=== PATIENT | male | born 1935 | race Caucasian/White ===

== ENCOUNTER 2016-08-15 21:27 | Inpatient (IN) | payer MEDICARE, BC ==
[~2016-08-15] VITALS: Ht 185.4 cm; Wt 89.0 kg
--- NOTE | ~2016-08-15 | ECH ---
Transthoracic Echocardiography Report (TTE) Demographics Patient Name TOOTIE DRAPER Date of Study 08/16/2016 Patient Number [id number] Visit Number [id number] Date of 1935 Room Number 303 Accession Number [id number] Gender Male Age 80 year(s) Referring Melissa PISANO Communication Clerk Stormy Connolly [facility] Physician Mario NOVAK Physician Interpreting Jaclyn Pearson Bus Operator Physician Supervising Ordering Physician Melissa Martin MD/P Nurse Stress Bunker Worker Conclusions Summary Technically fair exam. The estimated left ventricular ejection fraction is 50-55%. Mild to moderate left ventricular hypertrophy. The left atrium is mildly dilated by LA volume index measurement. Mild-moderate mitral regurgitation by color Doppler. The mitral regurgitation jet is posteriorly directed . There is mild aortic regurgitation by color Doppler. Mild tricuspid regurgitation by color Doppler. There is mild pulmonary hypertension. The pulmonary pressure (RVSP) is 37 mmHg. Procedure Type of Study TTE procedure:Echo Complete SF. Procedure Date Date: 08/16/2016 Start: 08:31 AM Technical Quality: Fair due to poor acoustical window. Indications:Elevated Troponin, Chest pain, Ischemic Cardiomyopathy and Coronary artery disease. Appropriate Use Criteria: 9 Height: 73 inches Weight: 194 pounds BSA: 2.12 m Rhythm: NSR HR: 72 bpm BP: 152/84 mmHg Allergies - Penicillin. M-Mode/2D Measurements LV Diastolic Dimension: 5.3 cm LV Systolic Dimension: 5.1 cm LV Septum Diastolic: 1.8 cm LV Septum Systolic: 1 cm LV PW Diastolic: 1.2 cm AO Root Dimension: 3.46 cm LA Dimension: 5.24 cm RV Diastolic Dimension: 3.38 cm LA volume: 87 ml LA volume index: 41 ml/m LVOT: 2.43 cm RV Base: 3.32 cm Doppler Measurements AV Peak Velocity: 0.77 m/s MV Peak E-Wave: 1.92 m/s AV Peak Gradient: 2.37 mmHg MV Peak A-Wave: 0.67 m/s LVOT Peak Velocity: 0.7 m/s MV E/A Ratio: 2.87 MV P1/2t: 48 msec TR Velocity:2.84 m/s TR Gradient:32.26 mmHg MV Deceleration Time: 164 msec Estimated RAP:5 mmHg MV Area (PHT): 4.58 cm Estimated RVSP: 37 mmHg PV Peak Velocity: 0.9 m/s PV Peak Gradient: 3.24 mmHg Estimated PASP: 37.26 mmHg RA Area: 15 cm Findings Left Ventricle The left ventricle is normal in size . Mild to moderate left ventricular hypertrophy. Diastolic assessment reveals Grade II pseudonormal diastolic function . Right Ventricle Device lead noted in the right ventricle. Right ventricle not well visualized. Left Atrium The left atrium is mildly dilated by LA volume index measurement. Right Atrium Normal right atrial size. Device lead seen in the right atrium. Mitral Valve Mild thickening of the mitral valve leaflets. Mild-moderate mitral regurgitation by color Doppler. The mitral regurgitation jet is posteriorly directed . Aortic Valve Normal aortic valve structure and function. There is mild aortic regurgitation by color Doppler. Tricuspid Valve Normal tricuspid valve structure and function. Mild tricuspid regurgitation by color Doppler. There is mild pulmonary hypertension. The pulmonary pressure (RVSP) is 37 mmHg. Pulmonic Valve Normal pulmonic valve structure and function. Pericardial Effusion No evidence of pericardial effusion. Miscellaneous Visualized portions of the aortic root and ascending aorta appear normal in size. Pleural Effusion No evidence of pleural effusion. Contractility Score LV regional wall motion:(0-Non visualized 1-Normal 2-Hypokinesis 3-Akinesis 4-Dyskinesis 5-Aneurysm) Signature
--- NOTE | ~2016-08-15 | CATH ---
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 100% occluded SVG to Left Circumflex Diagnostic Recommendations Medical management Culprit appeared to be the SVG to the left circumflex as patient appeared to have posterior EKG changes. Pt was chest pain free and hemodynamically stable and the SVG was 100% occluded proximally and is a poor interventional target, so we will treat medically. Procedure Description The patient was emergently brought to the diagnostic cardiac catheterization laboratory in the non- fasting, non-sedated state. Informed consent was obtained in the verbal form only after the risks and benefits were explained. The patient had no further questions and agreed to proceed. The planned puncture-incision site(s) were shaved and prepped with ChloraPrep and draped in the usual sterile manner. Conscious sedation, supplemental oxygen, and pain control medications were delivered by a registered nurse under physician guidance. Surface ECG rhythm, blood pressure measurement, and pulse oximetry were monitored throughout the procedure. Arterial access. The right femoral access site was infiltrated with lidocaine. The right femoral vessel was entered with the Seldinger technique. A 6F sheath was advanced into the vessel and used for catheter placement. Selective right coronary angiography. A 6F JR4 catheter was advanced into the right coronary vessel ostium under fluoroscopic guidance. Contrast was injected by hand. Images were obtained in multiple projections. Selective SVG angiography. A JR4 catheter was advanced into the graft proximal anastomosis under fluoroscopic guidance. Contrast was injected by hand. Images were obtained in multiple projections. Selective left coronary angiography. A 6F JL4 catheter was advanced into the left coronary vessel ostium under Fluoroscopic guidance. Contrast was injected by hand. Images were obtained in multiple projections. Selective AMBROCIO graft angiography. A IM catheter was advanced into the left internal mammary graft ostium under fluoroscopic guidance. Contrast was injected by hand. Images were obtained in multiple projections. Left heart catheterization. A 6F Pigtail catheter was advanced across the aortic valve to the left ventricle under fluoroscopic guidance. Resting hemodynamics were obtained. Arterial artery hemostasis was achieved using manual compression. The patient was transferred to the ICU via cart accompanied by a terrazzo laborer nurse. The patient left the laboratory in stable condition. Diagnostic Cath Status: Emergency Procedure Procedure Type Diagnostic procedure:Angiography:, Coronary Angios w/LHC & Grafts Indications: Acute MD. The procedure was explained in detail to the patient. Risks, complications and alternative treatments were reviewed. Written consent was obtained. Medications Reviewed with Patient prior to Procedure. Complications: No Complication. Angiographic Findings Dominance: Right Cardiac Arteries and Lesion Findings LMCA: Normal (0% Stenosis). LAD: Abnormal. Lesion on Prox LAD: 100% stenosis . Comments:CHIEF DIGITAL MEDIA OFFICER LCx: Abnormal. Lesion on Prox CX: 100% stenosis . Comments:CHIEF DIGITAL MEDIA OFFICER RCA: Abnormal. Lesion on Prox RCA: 30% stenosis .The lesion showed severe tortuosity. Lesion on Mid RCA: 60% stenosis .The lesion showed severe tortuosity. Ramus: Abnormal. Lesion on Ramus: 10% stenosis . Graft Lesions Lesion on Aorta Left to Mid CX: Proximal anastomosis.100% stenosis .Culprit lesion. Cardiac Grafts - There is a Vein graft that originates at the Aorta Left and attaches to the Mid CX. - There is a AMBROCIO graft that originates at the AMBROCIO and attaches to the Mid LAD.The graft from Mid LAD jumps to 1st Diag. Coronary Tree Procedure Data Procedure Date Date: 08/15/2016Start: 10:16 PMEnd: 10:59 PM Entry Locations - Percutaneous access was performed through the Right Femoral artery (Primary location). A 6 Fr sheath was inserted. Hemostasis was successfully obtained using Manual Compression. Procedure Medications Order and Administration + + +---------+-------+ !Time !Medication !Dosage !Route ! + + +---------+-------+ !08/15/2016 10:17 PM !Oxygen !2 l/min !NC ! + + +---------+-------+ !08/15/2016 10:19 PM !Fentanyl !25 mcg !I.V. ! + + +---------+-------+ !08/15/2016 10:19 PM !Versed !1 mg !I.V. ! + + +---------+-------+ !08/15/2016 10:29 PM !Fentanyl !25 mcg !I.V. ! + + +---------+-------+ !08/15/2016 10:29 PM !Versed !1 mg !I.V. ! + + +---------+-------+ !08/15/2016 10:33 PM !Oxygen !6 l/min !NC ! + + +---------+-------+ !08/15/2016 10:54 PM !Sodium Chloride !10 ml !I.V. ! + + +---------+-------+ Devices Used - ACATH 6FR MULTIPACK CATHETERSwas used for:Right coronary angiography. - ACATH 6FR MULTIPACK CATHETERSwas used for:SVG. - ACATH 6FR MULTIPACK CATHETERSwas used for:Left coronary angiography. - ACATH 6F IM CATHETER 100CMwas used for:AMBROCIO. - ACATH 6FR MULTIPACK CATHETERSwas used for:LV Pressures. Contrast Material - Isovue 34160 ml Fluoroscopy Time: Diagnostic: 5:18 minutes. Total: 5:18 minutes. Fluoroscopy Dose: Diagnostic: 740 mGy. Total: 740 mGy. Estimated Blood Loss: 10 ml. Medical History Allergies - Penicillin. Risk Factors The patient risk factors include:prior CABG;hypercholesterolemia, hypertension and dyslipidemia. Admission Data Admission Date: 08/15/2016 Admission Time: 10:18 PM Insurance Payors: Medicare. Clinical Evaluation Leading to Procedure Diagnosed on 08/15/2016 11:00 PM. - The patient's CAD presentation was assessed as: STEMI.The symptom onset was first noted on 08/15/2016 08:45 PM - The patient's anginal syndrome during the past two weeks was assessed as: Class IV according to the [place] Cardiovascular Society Classification System (CCS). Anti-anginal medications were prescribed during the past two weeks. The medication is: Beta Blockers. Hemodynamics Condition: Rest Estimated: Heart Rate: 95 bpm Pressures (mmHg) +-----+ + !Site !Pressure ! +-----+ + !AO !154/74 (110) ! +-----+ + !LV !130/6 ,13 ! +-----+ + !AO !123/54 (84) ! +-----+ + !LV !127/7 ,14 ! +-----+ + Valve Gradients and Areas + +---------+---------+---------+ +---------+ + !Valve !Peak !Mean !Area !Index !Flow !Source ! + +---------+---------+---------+ +---------+ + !Aortic !6 !7 ! ! ! ! ! + +---------+---------+---------+ +---------+ + !Aortic !6 !7 ! ! ! ! ! + +---------+---------+---------+ +---------+ + Shunts Oxygen Values O2 Capacity 183.6 Discharge Data Discharge Date: 08/18/2016 Hospital Status: Inpatient Signatures
--- NOTE | 2016-08-16 03:50 | ER ---
ADMIT: 08/15/2016 RM/LOC: W.02 [facility] MR#: [id number] [address] [facility] [address] [place], [place] [address] TOOTIE DRAPER [address] [place] [address] [place] [address] Emergency Room Report SEX: M AGE: 80 : 1935 DATE: 08/15/2016 TIME: 2127 hours. Please refer to my T-sheet for complete H and P. HISTORY OF PRESENT ILLNESS: Briefly, the patient is an 80-year-old who comes in. 30 minutes ago, he was having sex with his significant other when he developed substernal chest pain. It did not radiate. By the time he gets to the ER, it is gone. It lasted maybe 20 minutes. He has a known history of cardiac disease, he has ischemic cardiomyopathy, and he also has had a bypass in 2000. He did take a full aspirin before they came and says his pain is better now. He is rating it 0. PHYSICAL EXAMINATION: VITAL SIGNS: Blood pressure 167/82, pulse 88, respirations 12, temp 99.9, and sat 94%. GENERAL: He is in no acute distress. HEENT: Grossly normal. LUNGS: Clear. HEART: Regular. No murmur. ABDOMEN: Soft. SKIN: No rash. NEURO: He is alert and oriented, nonfocal. EMERGENCY DEPARTMENT COURSE: We did an EKG. It revealed a sinus rhythm, ST elevation inferiorly with reciprocal changes, rate 92. Immediately, we called Dr. Torres and notified the Insurance Marketing Specialist. There was some concern with the family as they have always seen [facility] in [place], but I still had Dr. Torres come in and talk to them, even discussed maybe transferring. However, after Dr. Torres arrived and answered a lot of their questions, they felt more comfortable and they decided to go proceed to the cardiac Insurance Marketing Specialist here. So, at this point, he was shipped off to the Insurance Marketing Specialist. There was a little bit of delay due to discussions of the debate on whether they wanted to be transferred or whether they wanted to be taken to the Insurance Marketing Specialist here. ASSESSMENT: Acute ST-elevation myocardial infarction, inferior, with reciprocal changes with a known history of cardiac disease. PLAN: To the cardiac Insurance Marketing Specialist. He arrived at 2127 hours. He left our ER at 2208 hours to the Insurance Marketing Specialist after some delay secondary to discussions on whether he wanted to stay or not. Phill Bolanos MD/ ricardo JOB #: [id number] CC: Mario Torres MD, Attending Physician ADMIT: 08/15/2016 RM/LOC: W.02 [facility] MR#: [id number] [address] [place], [place] [address] TOOTIE DRAPER [address] [place] [address] Emergency Room Report SEX: M AGE: 80 : 1935 Mario Torres MD, Family Physician
--- NOTE | 2016-08-17 10:47 | CO ---
ADMIT: 08/15/2016 RM/LOC: 303 [facility] MR#: [id number] [address] [place], [place] [address] TOOTIE DRAPER [address] [place] [address] Consultation SEX: M AGE: 80 : 1935 DATE OF CONSULTATION: 08/16/2016 ATTENDING PHYSICIAN: Mario Torres CONSULTING PHYSICIAN: Cathryn Veliz MD REASON FOR CONSULTATION: Medical management for assistance with managing his hypothyroidism and COPD. HISTORY OF PRESENT ILLNESS: Mr. Draper is a very pleasant 80-year-old man. He has a past medical history significant for history of mantle cell lymphoma, currently in remission, papillary thyroid carcinoma as well as coronary artery disease status post CABG in 2007 who presented last night with a complaint of chest pain that started after intercourse. The patient reports that he had some chest pain, it sounds like over the last week, had an episode that lasted about 15-20 minutes and then after intercourse, did have trouble with chest pressure that radiated to his back and shoulder. He took a full aspirin, came to the ER, was found to have inferior ST elevation and ST depression consistent with a posterior wall AL in the anterior leads. PAST MEDICAL HISTORY: Significant for: 1. History of coronary artery disease status post CABG 2000. 2. History of dual chamber ICD placement in 2007 with a generator change in 2013. 3. Lipoma of his arm. 4. 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 5. History of papillary thyroid cancer status post resection. 6. History of knee surgery. 7. Status post adenoidectomy. 8. History of hypertension. 9. History of hyperlipidemia. 10.History of BPH. 11.History of mantle cell lymphoma, currently in remission. ALLERGIES: HE HAS NO KNOWN MEDICAL ALLERGIES. MEDICATIONS: 1. Benazepril 5 mg p.o. daily. 2. Metoprolol 50 mg p.o. b.i.d. 3. Finasteride 5 mg p.o. daily. 4. Levothyroxine 175 mcg p.o. daily. 5. Atorvastatin 40 mg p.o. at bedtime. 6. Baby aspirin. 7. Multivitamin. 8. DuoNeb b.i.d. and q.2 hours p.r.n. SOCIAL HISTORY: He is , accompanied by his . He eats a regular diet. He is a former smoker, but quit in 2000. Denies any drug use. ADMIT: 08/15/2016 RM/LOC: 303 [facility] MR#: [id number] [address] [address] TOOTIE DRAPER [address] [place] [address] Consultation SEX: M AGE: 80 : 1935 FAMILY HISTORY: Positive for cancer in a brother. Coronary disease in a sister, mother with uterine cancer, and a sister with Alzheimer's. REVIEW OF SYSTEMS: Obtained and noted that generally he has actually been gaining some weight, but notes that his appetite has been down. reports that he has been eating more Juani bars and Deli bars. Otherwise his review of systems was obtained and it was essentially negative. PHYSICAL EXAM: SKIN: Warm and dry. HEENT: Pupils are equal, round, reactive. Oropharynx has dry mucous membranes. NECK: Supple. HEART: Normal rate with a regular rhythm with no murmurs. LUNGS: Diminished breath sounds bilaterally. ABDOMEN: Obese, soft. Bowel sounds are present. EXTREMITIES: Have trace to 1+ lower extremity edema bilaterally. MUSCULOSKELETAL: Symmetric in his upper and lower extremities. NEUROLOGICAL: Grossly intact. ASSESSMENT/PLAN: 1. Coronary artery disease status post inferior wall myocardial infarction, currently medically managed. He was taken to the recyclable materials collector last night and appeared to have no stentable lesions, therefore, he is being medically managed. 2. Hypothyroidism with a history of thyroid cancer. We will go ahead and check a TSH. We will get his Synthroid resumed. 3. History of elevated A1c. We will go ahead and repeat an A1c at this time. 4. History of chronic obstructive pulmonary disease, continue his DuoNeb. 5. History of BPH, he is already on the Proscar. 6. Hypertension. 7. Hyperlipidemia. Otherwise patient is relatively stable. We will follow along. Cathryn Veliz MD/ ricardo JOB #: [id number] CC: Mario Torres, Attending Physician Mario Torres, Family Physician
[2016-08-19] MEDS ORDERED: METOPROLOL TART25 MG PO (08:29)
[2016-08-19] MEDS ORDERED: THERA1 EACH PO (08:30)
[2016-08-19] MEDS ORDERED: CALTRATE-600 W600 MG PO (08:30)
[2016-08-19] MEDS ORDERED: SYNTHROID DP0.175 MG PO (08:30)
[2016-08-19] MEDS ORDERED: PROSCAR DPS5 MG PO (08:31)
[2016-08-19] MEDS ORDERED: LOTENSIN5 MG PO (08:31)
[2016-08-19] MEDS ORDERED: ATORVASTATIN CA40 MG PO (08:31)
[2016-08-19] MEDS ORDERED: PLAVIX75 MG PO (08:32)
[2016-08-19] MEDS ORDERED: ASPIRIN EC81 MG PO (08:32)
[2016-08-19] MEDS ORDERED: NITROSTAT0.4 MG SL (08:32)
--- NOTE | 2016-08-19 14:41 | HP ---
ADMIT: 08/15/2016 RM/LOC: 303 [facility] MR#: [id number] [address] [address] TOOTIE DRAPER [address] [place] [address] [place] [address] History and Physical SEX: M AGE: 80 : 1935 DATE OF SERVICE: REASON FOR ADMISSION: Acute posterior myocardial infarction. HISTORY OF PRESENT ILLNESS: Tootie is a pleasant 80-year-old male, who I was asked to see in consultation in the emergency room from Dr. Bolanos regarding chest pain and acute EKG changes. Tootie has a history of coronary artery disease with prior bypass in 2000. He also, at that time, had a myocardial infarction and tells me that Dr. Schmitt did a three-vessel bypass on him and he has a dual-chamber ICD that was placed in 2007. I do not have all his history available. He states he has not had any stents since his bypass surgery, but he has been going to the [facility] regularly for lymphoma treatment as he is in a study but is in remission. He states last week, he had an episode of chest pain that lasted about 15-20 minutes. Tonight, after sexual intercourse, he started to develop chest pressure. He said this radiates to his back and his shoulder. He took a full aspirin and they came into the emergency room. He says as he got to the emergency room, his chest pain resolved, but his initial EKG showed some mild inferior ST elevations along with significant ST depressions possibly consistent with a posterior VA in the anterior leads. PAST MEDICAL HISTORY: 1. History of coronary artery disease, status post coronary bypass grafting in 2000. 2. History of a dual-chamber ICD placed in 2007 with a generator change in 2013. This is a dual-chamber device. 3. History of lipoma on his arm. 4. History of facial skin cancer. 5. History of thyroid cancer. 6. History of knee surgery. 7. History of adenoidectomy. 8. History of colonoscopy. 9. History of hypertension. 10.History of hyperlipidemia. 11.History of BPH. ALLERGIES: NO KNOWN DRUG ALLERGIES. MEDICATIONS: He is on: 1. Benazepril 5 mg daily. 2. Metoprolol 50 mg p.o. b.i.d. 3. Finasteride 5 mg daily. 4. Levothyroxine 0.175 mg daily. 5. Multivitamin daily. 6. Baby aspirin daily. 7. Atorvastatin 40 mg at bedtime. SOCIAL HISTORY: He is and accompanied by his . He eats a regular diet. Former smoker but quit in 2000. Denies any drug use. ADMIT: 08/15/2016 RM/LOC: 303 [facility] MR#: [id number] [address] [address] TOOTIE DRAPER [facility] [place] [address] History and Physical SEX: M AGE: 80 : 1935 FAMILY HISTORY: No family history of premature coronary artery disease. He has a grandson with diabetes, and his mother had cancer. REVIEW OF SYSTEMS: GENERAL: He says he has been feeling in his normal state of health. Denies any fever or chills. RESPIRATORY: Denies any shortness of breath. No hemoptysis. He does snore. EYES: Denies any visual changes. ENT: He does have hearing loss. CARDIAC: As per HPI. VASCULAR: He denies any claudication or edema. He says his legs have felt cold though the last couple of days. GASTROINTESTINAL: He denies any nausea, vomiting, or diarrhea. GENITOURINARY: He denies any dysuria or hematuria. ENDOCRINE: He denies any goiters or tremors. NEUROLOGIC: He denies any memory loss or seizures. No dizziness. PSYCHIATRIC: He denies any hallucinations or depression. SKIN: He denies any rashes. MUSCULOSKELETAL: He denies any joint pains. HEMATOLOGIC: He does have easy bruising and bleeding. He denies any anemia or thrombocytopenia. PHYSICAL EXAMINATION: VITAL SIGNS: Blood pressure was 140/70, heart rate was in the 70s, respirations 18, oxygen was 94% on room air. GENERAL: He is alert, oriented, conversant. He is in no acute distress at this time. HEENT: Normocephalic, atraumatic. Moist mucous membranes. NECK: Supple. No lymphadenopathy. No carotid bruits are auscultated. HEART: Regular rate and rhythm. He has a soft, 2/6 holosystolic murmur along the left sternal border. LUNGS: Clear to auscultation bilaterally. ABDOMEN: Soft, nontender, and nondistended. EXTREMITIES: No cyanosis, clubbing, or edema. NEUROLOGIC: Cranial nerves II through XII intact. PSYCHIATRIC: He is alert, oriented, and appropriate. DIAGNOSTIC DATA: EKG initially shows some mild inferior ST elevations along with ST depressions in the anterior leads possibly consistent with a posterior VA. IMPRESSION: 1. Acute posterior myocardial infarction with anterior ST depression. 2. Coronary artery disease, status post coronary artery bypass graft in 2000. 3. Ischemic cardiomyopathy. 4. Status post dual-chamber ICD. 5. Hyperlipidemia. ADMIT: 08/15/2016 RM/LOC: 303 [facility] MR#: [id number] [address] [place] [id number] TOOTIE DRAPER [facility] [place] [address] History and Physical SEX: M AGE: 80 : 1935 6. Hypertension. RECOMMENDATIONS: Given his acute chest pain and his EKG changes, I recommend proceeding urgently to cardiac catheterization. I discussed the risks and benefits, including but not limited to, stroke, heart attack, , bleeding, infection, renal failure. The patient understands these risks. He is very reluctant to proceed. He says he is currently chest pain-free, but EKG still has changes. He does have a dual-chamber ICD but does not appear to be pacing at all that would be affecting the EKG. Initially, he refused to go to the It Support Engineer and we were discussing options with him, then he changed his mind and decided to proceed. We will have further recommendations as his care progresses. Mario Torres MD/ ricardo JOB #: [id number] CC: Mario Torres, Attending Physician Mario Torres, Family Physician
--- NOTE | 2016-09-12 15:13 | DS ---
ADMIT: 08/15/2016 RM/LOC: 303 [facility] MR#: [id number] [id number] [place], [place] [id number] [employer] [address] [place] [address] [place] [address] General Discharge Summary SEX: M AGE: 80 : 1935 ADMISSION DATE: 08/15/2016 DISCHARGE DATE: 08/18/2016 CONSULTS: Include Dr. Cathryn Veliz, Primary Care. FINAL DIAGNOSES: 1. Acute posterior ST-elevated myocardial infarction. 2. Hypertension. 3. Hyperlipidemia. 4. Status post dual-chamber implantable cardioverter defibrillator. 5. Ischemic cardiomyopathy. 6. Coronary artery disease, status post coronary artery bypass graft in 2000. 7. Status post 100% occluded saphenous vein graft to the left circumflex. This was deemed to be poor interventional targets and ongoing medical management was advised. DIAGNOSTICS/PROCEDURES: The patient had diagnostic left heart catheterization on 08/15/2016, showing severe two-vessel coronary artery disease with chronically occluded left circumflex and LAD, widely patent AMBROCIO to the diagonal of the LAD with a 100% occluded saphenous vein graft to the left circumflex. As the patient was chest pain free and hemodynamically stable, a saphenous vein graft was 100% occluded proximally and was a poor interventional target, so ongoing medical management was recommended at that time. Chest x-ray done on 08/15/2016, showed negative portable chest. Echocardiogram on 08/16/2016, showed an EF of 50% to 55%, [id number] left ventricular hypertrophy, mildly dilated left atrium, [id number] mitral regurgitation with mild tricuspid regurgitation, and mild pulmonary hypertension with an RVSP of 37. HOSPITAL COURSE: The patient admitted on 08/15/2016, after coming into the emergency room complaining of chest discomfort. His EKG was consistent with acute posterior myocardial infarction. He did have anterior ST depression also. He had known history of coronary artery disease, status post CABG in 2000 with uncertain anatomy. He was very hesitant to proceed with diagnostic left heart catheterization at first. He actually refused, but then after making some phone calls, decided he would proceed. He was therefore taken to the labor contractor where he was found to have 100% occluded saphenous vein graft to his left circumflex. It was decided that we would pursue medical management as he was chest pain free, hemodynamically stable, and a saphenous vein graft did not appear to be a good interventional target. He was started on metoprolol, aspirin, benazepril, finasteride, and atorvastatin. He had a heparin drip started and Dr. Veliz saw him in consultation for primary care. He had a repeat echocardiogram, which showed his EF to be 55%. His Zestril was increased and it was recommended we continue long-term dual anti-platelet therapy. He had minimal chest pain the next day and no arrhythmias. That afternoon, he did develop some PVCs, but he was asymptomatic with these. His heparin was continued. His troponin went up to 101. On the , it was decided to continue heparin for another 24 hours. Cardiac rehab was referred. ADMIT: 08/15/2016 RM/LOC: 303 [facility] MR#: [id number] [address] [place] [id number] [address] [address] [place] [address] General Discharge Summary SEX: M AGE: 80 : 1935 He began having hematuria and had a low-grade temp. His blood pressures dropped in systolic into the 70s and 80s, and he did have a stat hemoglobin and hematocrit. He was given a 250 normal saline bolus and his Lopressor was held. The patient was asymptomatic with his hypotension. The next day, his troponin did come down to 71, his beta-deric was decreased, it was felt safe to be discharged to home. His hematuria was a chronic problem and it was decided it would improve with stopping the heparin. He was scheduled for followup in 1 week and sent home on; DISCHARGE MEDICATIONS: 1. Aspirin 81 mg p.o. daily. 2. Lipitor 40 mg at bedtime. 3. Lopressor 25 mg b.i.d. 4. Plavix 75 mg p.o. daily. 5. Proscar 5 mg daily. 6. Synthroid 0.125 mg daily. 7. Benazepril 5 mg daily. 8. Calcium with vitamin D. DISCHARGE INSTRUCTIONS: He is to follow up with his primary care in 2 to 3 weeks. DISCHARGE DISPOSITION: To home with discharge condition stable. VITAL SIGNS: On discharge, blood pressure 95/60, pulse of 77, O2 saturation of 95%, respirations of 16. KISHOER Leyva / Mario Torres MD / ricardo JOB #: [id number] CC: Mario Torres MD, Attending Physician Mario Torres MD, Family Physician
[2016-10-10] MEDS ORDERED: SYNTHROID DP0.175 MG PO (16:22)
[2016-10-10] MEDS ORDERED: METOPROLOL TART25 MG PO (16:22)
[2016-10-10] MEDS ORDERED: THERA1 EACH PO (16:23)
[2016-10-10] MEDS ORDERED: ATORVASTATIN CA40 MG PO (16:23)
[2016-10-10] MEDS ORDERED: CALTRATE-600 W600 MG PO (16:23)
[2016-10-10] MEDS ORDERED: PROSCAR DPS5 MG PO (16:23)
[2016-10-10] MEDS ORDERED: NITROSTAT0.4 MG SL (16:24)
[2016-10-10] MEDS ORDERED: PLAVIX75 MG PO (16:24)
[2016-10-10] MEDS ORDERED: ASPIRIN EC81 MG PO (16:24)
== END 2016-08-18 10:37 | disposition home or self-care (01) | DRG 281 ==
LOC: ER 21:27 → WOR 22:18 → 3ICU 22:18
PROVIDERS: ADMIT Internal Medicine Cardiovascular Disease
PROC: B2131ZZ Fluoroscopy of Multiple Coronary Artery Bypass Grafts using Low Osmolar Contrast (ICD-10-PCS; principal; 2016-08-15)
PROC: 4A023N7 Measurement of Cardiac Sampling and Pressure, Left Heart, Percutaneous Approach (ICD-10-PCS; principal; 2016-08-15)
PROC: B2111ZZ Fluoroscopy of Multiple Coronary Arteries using Low Osmolar Contrast (ICD-10-PCS; principal; 2016-08-15)
DX: I21.29 ST elevation (STEMI) myocardial infarction involving other sites (principal); I25.810 Atherosclerosis of coronary artery bypass graft(s) without angina pectoris; I95.9 Hypotension, unspecified; J44.9 Chronic obstructive pulmonary disease, unspecified; R31.9 Hematuria, unspecified; Z95.1 Presence of aortocoronary bypass graft; E87.6 Hypokalemia; I10 Essential (primary) hypertension; I25.10 Atherosclerotic heart disease of native coronary artery without angina pectoris; I25.5 Ischemic cardiomyopathy; E78.5 Hyperlipidemia, unspecified; E03.9 Hypothyroidism, unspecified; N40.0 Benign prostatic hyperplasia without lower urinary tract symptoms; Z79.82 Long term (current) use of aspirin; I25.2 Old myocardial infarction; Z87.891 Personal history of nicotine dependence; Z95.810 Presence of automatic (implantable) cardiac defibrillator; Z85.72 Personal history of non-Hodgkin lymphomas; Z85.828 Personal history of other malignant neoplasm of skin; Z85.850 Personal history of malignant neoplasm of thyroid; Z82.49 Family history of ischemic heart disease and other diseases of the circulatory system

== ENCOUNTER 2016-10-08 20:36 | Observation (INO) | payer MEDICARE, BC ==
[~2016-10-08] VITALS: Ht 185.4 cm; Wt 88.0 kg
[~2016-10-08 20:36] MED LIST: ASPIRIN EC81 MG PO; ATORVASTATIN CA40 MG PO; CALTRATE-600 W600 MG PO; LOTENSIN5 MG PO; METOPROLOL TART25 MG PO; NITROSTAT0.4 MG SL; PLAVIX75 MG PO; PROSCAR DPS5 MG PO; SYNTHROID DP0.175 MG PO; THERA1 EACH PO
--- NOTE | 2016-10-10 08:23 | HP ---
ADMIT: 10/08/2016 RM/LOC: 402 [facility] MR#: [id number] [address] [facility] [address] [place] [phone] [address] [facility] [place] [address] History and Physical SEX: M AGE: 81 : 1935 DATE OF SERVICE: CHIEF COMPLAINT: AICD firing. HISTORY OF PRESENT ILLNESS: The patient is a very pleasant, 81-year-old gentleman, well known to me from clinic, who has a history of coronary artery disease, recent posterior ST-elevation OH in August who has had an AICD for about 16 years. He was sitting yesterday, just sat down to do a [employer] puzzle and noticed he just did not feel right for a second and then had his AICD fire. After that, he said he felt great and to use his words, he says he feels the best he has had in many years now. No chest pain. No shortness of breath. No fevers or chills recently. He has been active out in the yard doing a lot of yard work. He states he has been eating and drinking okay that he thinks. No missing of his medications. No nausea or vomiting. He has not had any similar episodes of this and has never gone off before. PAST MEDICAL HISTORY: 1. History of coronary artery disease, extensive with occluded graft, CABG years ago in 2000, status post AICD, STEMI in 2016, hypertension, hyperlipidemia. 2. History of thyroid cancer. 3. BPH. 4. COPD. 5. Mantle cell lymphoma. He follows with [facility]. 6. Emphysema. MEDICATIONS: 1. DuoNeb. 2. Aspirin. 3. Atorvastatin. 4. Plavix. 5. Finasteride. 6. Levothyroxine. 7. Metoprolol. 8. Multivitamin. Please see list for full details. PAST SURGICAL HISTORY: He has AICD as well as CABG. FAMILY HISTORY: Significant for uterine cancer in her mother. Sister with coronary artery disease and Alzheimer's disease. SOCIAL HISTORY: Smoking history, extensive. Quit in 2000. He had smoked prior for 50 years. REVIEW OF SYSTEMS: As per HPI. Otherwise, completely reviewed and negative. PHYSICAL EXAMINATION: VITAL SIGNS: Temperature 97.1, pulse 72, respiratory rate 18, blood pressure 117/76, saturating 92% on room air. ADMIT: 10/08/2016 RM/LOC: 402 [facility] MR#: [id number] [address] [facility] [address] [place] [phone] [employer] [address] [place] [address] History and Physical SEX: M AGE: 81 : 1935 GENERAL: He is alert and oriented x3. No acute distress. Very pleasant gentleman as always. HEENT: Normocephalic, atraumatic. Pupils equal, round, and reactive to light and accommodation. Extraocular muscles intact. Dry mucous membranes. LUNGS: Clear to auscultation anteriorly. He has a few faint rales posteriorly consistent with his prior exam. HEART: Regular rate and rhythm. No murmurs, rubs, or gallops. ABDOMEN: Soft, nontender, nondistended. Bowel sounds present. EXTREMITIES: No cyanosis, clubbing, or edema. MUSCULOSKELETAL: 5/5 strength in all 4 extremities. NEUROLOGICAL: No focal deficits noted. Cranial nerves II through XII grossly intact. LABORATORY AND X-RAY DATA: He has negative troponin and cardiac enzyme last night. His sodium was 147, creatinine is 1.1, hemoglobin is 12.9, white count 5.0, platelets 155, potassium is 3.7, magnesium is 2.0. EKG is reviewed. There are no acute findings. ASSESSMENT: 1. Ventricular tachycardia episode, successfully converted with AICD (automatic implantable cardiodefibrillator) with ICD (implantable cardiodefibrillator) firing. 2. COPD (chronic obstructive pulmonary disease). 3. Extensive coronary artery disease history and ischemic cardiomyopathy. 4. Hypertension. 5. Hyperlipidemia. 6. Mantle cell lymphoma. PLAN: At this point in time, he says he feels fantastic. He is really anxious to return home. Given this appropriate firing of ventricular tachycardia, he feels great, I think he can go home. Negative cardiac enzymes. We will have him follow up with Cardiology in the next 7-14 days. Otherwise encouraged to drink plenty of fluids. He looked a little dehydrated on his lab work. If anything should occur in the meantime, he will let us know. He feels safe and comfortable with the plan. We will get him home this morning. Lionel Edwards MD/ prudencio JOB #: [id number] CC: Lionel Edwards MD, Attending Physician Lionel Edwards MD, Family Physician
[2016-10-10] MEDS ORDERED: SYNTHROID DP0.175 MG PO (16:22)
[2016-10-10] MEDS ORDERED: METOPROLOL TART25 MG PO (16:22)
[2016-10-10] MEDS ORDERED: CALTRATE-600 W600 MG PO (16:23)
[2016-10-10] MEDS ORDERED: THERA1 EACH PO (16:23)
[2016-10-10] MEDS ORDERED: PROSCAR DPS5 MG PO (16:23)
[2016-10-10] MEDS ORDERED: ATORVASTATIN CA40 MG PO (16:23)
[2016-10-10] MEDS ORDERED: ASPIRIN EC81 MG PO (16:24)
[2016-10-10] MEDS ORDERED: NITROSTAT0.4 MG SL (16:24)
[2016-10-10] MEDS ORDERED: PLAVIX75 MG PO (16:24)
--- NOTE | 2016-10-14 13:16 | ER ---
ADMIT: 10/08/2016 RM/LOC: 402 [facility] MR#: [id number] [address] [place], [place] [id number] [employer] [address] [address] [place] [address] Emergency Room Report SEX: M AGE: 81 : 1935 DATE: 10/08/2016 HISTORY OF PRESENT ILLNESS: A 81-year-old gentleman was sitting at home working a [employer] puzzle when he stood up and apparently felt his defibrillator go off. Prior to hs standing up, he was feeling lightheaded and somewhat clammy and the defibrillator went off. He said he felt better after that event. He has not had similar symptoms in the past. No recent hospitalizations. REVIEW OF SYSTEMS: Essentially negative. He does have an extensive cardiac disease including a recent [place]. SOCIAL HISTORY: Does not smoke or drink. PHYSICAL EXAMINATION: GENERAL: An 81-year-old gentleman in no acute distress. HEENT: Normocephalic and atraumatic. Pupils are equal and reactive. LUNGS: Clear to auscultation. CARDIOVASCULAR: Regular rate and rhythm with no murmurs, rubs, or gallops. ABDOMEN: Soft and nontender. EXTREMITIES: Unremarkable. NEUROLOGIC: Without focal findings. Cardiac workup was initiated and his pacer was interrogated, which showed a 9- second run of V tach. His cardiac workup was significant for a mild elevation in his CK-MB at 4.01. The patient was being admitted for arrhythmia. Harpal Mary MD/ ricardo JOB #: [id number] CC: Lionel Edwards MD, Attending Physician Lionel Edwards MD, Family Physician
== END 2016-10-09 09:30 | disposition home or self-care (01) ==
LOC: ER 20:36 → 4PCU 21:38
PROVIDERS: ADMIT Internal Medicine
DX: I47.2 Ventricular tachycardia (principal); J44.9 Chronic obstructive pulmonary disease, unspecified; I25.10 Atherosclerotic heart disease of native coronary artery without angina pectoris; I10 Essential (primary) hypertension; E78.5 Hyperlipidemia, unspecified; C83.10 Mantle cell lymphoma, unspecified site; Z95.810 Presence of automatic (implantable) cardiac defibrillator; Z87.891 Personal history of nicotine dependence; Z95.1 Presence of aortocoronary bypass graft; Z79.899 Other long term (current) drug therapy; Z79.82 Long term (current) use of aspirin; Z85.850 Personal history of malignant neoplasm of thyroid